=== PATIENT | female | born 1995 | race Caucasian/White ===

== ENCOUNTER → 2019-01-16 | Outpatient (CLI) | payer MEDICARE ==
--- NOTE | 2019-01-16 18:52 | RAD ---
Left ankle 3 views: Reason for examination: Ankle injury on 01/14/2019 with pain. No fracture or dislocation is seen. The bone density is normal. No abnormal periosteal reaction is seen. Joint spaces are maintained. There is however soft tissue swelling over the lateral malleolus. IMPRESSION: No fracture or dislocation. Soft tissue swelling present over the lateral malleolus. Electronically signed by: Minerva Walls MD (01/16/2019 6:49 PM) [facility]
== END | disposition home or self-care (01) ==
LOC: RAD 18:13
PROVIDERS: ATTEND Physician Assistant Medical
DX: S99.912A Unspecified injury of left ankle, initial encounter (principal); M79.89 Other specified soft tissue disorders; X58.XXXA Exposure to other specified factors, initial encounter; Y93.89 Activity, other specified; Y92.89 Other specified places as the place of occurrence of the external cause; Y99.8 Other external cause status
CPT/HCPCS: 73610

== ENCOUNTER → 2019-11-10 | Outpatient (CLI) | payer MEDICARE ==
--- NOTE | 2019-11-10 10:05 | RAD ---
EXAM: Chest, 2 views. HISTORY: Sore throat. Cough. COMPARISON: None. FINDINGS: 2 views of the chest are obtained. There is no infiltrate, pleural effusion or pneumothorax. The heart is normal in size. IMPRESSION: No acute pulmonary finding. Electronically signed by: Katy Grajeda MD (11/10/2019 10:02 AM) [facility]
== END | disposition home or self-care (01) ==
LOC: PMG 09:31
PROVIDERS: ATTEND Physician Assistant
DX: J02.9 Acute pharyngitis, unspecified (principal); R05 Cough
CPT/HCPCS: 71046

== ENCOUNTER → 2020-08-20 | Outpatient (CLI) | payer MEDICARE | LOC: LAB 09:23 | PROVIDERS: ATTEND Family Medicine | DX: U07.1 COVID-19 (principal) | CPT/HCPCS: U0003 ==

== ENCOUNTER → 2020-09-05 | Outpatient (CLI) | payer MEDICARE | LOC: LAB 09:00 | PROVIDERS: ATTEND Family Medicine | DX: Z20.828 Contact with and (suspected) exposure to other viral communicable diseases (principal); B97.29 Other coronavirus as the cause of diseases classified elsewhere | CPT/HCPCS: U0003 ==